=== PATIENT | male | born 2000 | race Caucasian/White ===

== ENCOUNTER 2021-08-19 18:43 | Emergency (ER) | payer OTHER, BC ==
[2021-08-19] MEDS ORDERED: Lidocaine 1% 5 ML VIAL INJECT ONE (18:46)
[2021-08-19] MEDS ORDERED: Diphtheria,Pertussis(Acell),Tetanus Vaccine 0.5 ML Syringe IM ONE (19:08)
== END 2021-08-19 19:28 | disposition home or self-care (01) ==
LOC: VM.ED 18:43
DX: S01.511A Laceration without foreign body of lip, initial encounter (principal); Z23 Encounter for immunization; W26.8XXA Contact with other sharp object(s), not elsewhere classified, initial encounter
CPT/HCPCS: 12011; 90471; 90715; 99282-25; 99283